=== PATIENT | female | born 1985 | race Caucasian/White ===

== ENCOUNTER 2017-07-20 00:26 | Emergency (ER) | payer BC ==
[2017-07-20] MEDS ORDERED: Azithromycin TAB* 250 MG PO ONE (03:16)
[2017-07-20] MEDS ORDERED: Albuterol HFA INHALER* 8 gm MDI INH ONE (03:17)
[2017-07-20 04:09] VITALS: BP 147/104
--- NOTE | 2017-07-20 06:56 | ED ---
Chang Bush Rebecca, scribed for Hoang Rosa MD on 07/20/17 at 0315 . Respiratory - HPI Summary HPI Summary: Pt is a 31 y/o F who presents to ED c/o productive cough. Sx began one week ago and is productive thick, yellow sputum. Reports that coughs "come in waves." Additionally c/o chills, dizziness, SOB, chills and ear pressure. SOB is characterized as dyspnea at exertion. Denies ear pain, vomiting and edema. 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 PMHx asthma - last year had PNA and was put on an nhaler. - History of Current Complaint Chief Complaint: EDUpperRespComplaint Stated Complaint: COUGH,DIZZINESS Time Seen by Provider: 07/20/17 03:08 Hx Obtained From: Patient Current Severity: Moderate Pain Intensity: 6 Character: Wheezing, Cough (Productive), Dyspnea on Exertion Sputum Color: Yellow Aggravating Factor(s): Nothing Alleviating Factor(s): Nothing Associated Signs and Symptoms: SOB, Chills - Allergy/Home Medications Allergies/Adverse Reactions: Allergies Allergy/AdvReac Type Severity Reaction Status Date / Time Aspirin [ASA] Allergy Severe Anaphylatic Verified 07/20/17 01:29 Shock Sulfa Antibiotics Allergy Intermediate Rash Verified 07/20/17 01:29 PMH/Surg Hx/FS Hx/Imm Hx Endocrine/Hematology History: Reports: Other Endocrine/Hematological Disorders - hypoglycemia Cardiovascular History: Reports: Hx Hypertension Respiratory History: Reports: Hx Asthma Infectious Disease History: No Infectious Disease History: Denies: Traveled Outside the [place] in Last 30 Days - Family History Known Family History: Positive: Hypertension, Diabetes Negative: Cardiac Disease - Social History Alcohol Use: None Substance Use Type: Reports: None Hx Tobacco Use: No Smoking Status (MU): Never Smoked Tobacco Review of Systems Positive: Chills Positive: Other - Ear pressure. Negative: Ear Ache Positive: Shortness Of Breath, Cough Negative: Vomiting Neurological: Other - Dizziness All Other Systems Reviewed And Are Negative: Yes Physical Exam - Summary Physical Exam Summary: The patient is well-nourished in no acute distress and in no acute pain. The skin is warm and dry and skin color reflects adequate perfusion. Good skin turgor. HEENT: The head is normocephalic and atraumatic. The pupils are equal and reactive. The conjunctivae are clear and without drainage. Nares are patent and without drainage. Mouth reveals moist mucous membranes and the throat is without erythema and exudate. The external ears are intact. The ear canals are patent and without drainage. The tympanic membranes are intact. Neck is supple with full range of motion and non-tender. There is no adenopathy. There is no neck vein distension. Respiratory: Chest is non-tender. Lungs are clear to auscultation and breath sounds are symmetrical and equal with no rales, rhonchi or wheezing. Cardiovascular: Hear is regular rate and rhythm. There is no murmur or rub auscultated. There is no peripheral edema and pulses are symmetrical and equal. Abdomen: The abdomen is obese, soft and non-tender. There are normal bowel sounds heard in all four quadrants and there is no organomegaly palpated. Musculoskeletal: There is no back pain noted. Extremities are non-tender with full range of motion. There is good capillary refill. There is no peripheral edema or calf tenderness elicited. Neurological: Patient is alert and oriented to person, place and time. The patient has symmetrical motor strength in all four extremities. Psychiatric: The patient has an appropriate affect and does not exhibit any anxiety or depression. Triage Information Reviewed: Yes Vital Signs On Initial Exam: Initial Vitals Temp Pulse Resp BP Pulse Ox 98.4 F 93 18 156/108 100 07/20/17 00:33 07/20/17 00:33 07/20/17 00:33 07/20/17 00:33 07/20/17 00:33 Vital Signs Reviewed: Yes Diagnostics - Vital Signs Vital Signs Temp Pulse Resp BP Pulse Ox 07/20/17 01:25 97.7 F 98 20 100 07/20/17 00:33 98.4 F 93 18 156/108 100 - Laboratory Lab Statement: Any lab studies that have been ordered have been reviewed, and results considered in the medical decision making process. Disposition - Course Assessment/Plan: Pt is a 31 y/o F who presents to ED c/o productive cough. Sx began one week ago and is productive thick, yellow sputum. Reports that coughs "come in waves." Additionally c/o chills, dizziness, SOB, chills and ear pressure. SOB is characterized as dyspnea at exertion. Denies ear pain, vomiting and edema. 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 PMHx asthma - last year had PNA and was put on an inhaler. In the ED course, pt was given a ventolin inhaler and Zithromax. Pt will be D/C to home with Dx of acute bronchitis with an Rx for Zithromax and a follow up with her PCP. She understands and agrees. Elevated BP noted and advised to f/u with PCP. - Differential Dx - Cardiopulmonary Differential Diagnoses - Cardiopulmonary: Asthma, Bronchitis, Lower Resp Infection - Diagnoses Provider Diagnoses: Acute bronchitis Discharge - Discharge Plan Condition: Stable Disposition: HOME Prescriptions: Azithromycin TAB* [Zithromax TAB (Z-TRISTAN) 250 mg #6 tabs] 2 tab PO .TODAY, THEN 1 DAILY #1 tristan Patient Education Materials: Acute Bronchitis (ED) Forms: *Work Release Referrals: Benito Curry MD [Primary Care Provider] - 3 Days The documentation as recorded by the Chang avendaño Rebecca accurately reflects the service I personally performed and the decisions made by me, Hoang Rosa MD.
== END 2017-07-20 04:05 | disposition home or self-care (01) ==
LOC: ED 00:26
DX: J20.9 Acute bronchitis, unspecified (principal); R06.2 Wheezing; R06.00 Dyspnea, unspecified; R05 Cough; R68.83 Chills (without fever)
CPT/HCPCS: 99283; A9270-GY

== ENCOUNTER 2018-06-02 21:47 | Emergency (ER) | payer BC, MEDICAID ==
[2018-06-02] MEDS ORDERED: Ketorolac INJ* 30 MG/ML 1 ML VIAL IV PUSH ONE (22:48)
[2018-06-02] MEDS ORDERED: Metoclopramide IV* 5 MG/ML 2 ML VIAL IV SLOW PU ONE (22:48)
[2018-06-02] MEDS ORDERED: diPHENhydraMINE IV* 50 MG/ML 1 ml VIAL (BENADRYL) IV ONE (22:49)
[2018-06-02] MEDS ORDERED: NS 0.9% 1000 ML* 1,000 ML IV ONE (22:49)
[2018-06-02 22:59] LABS: ABS Basophils 0.1 10^3/ul (0-0.2); ABS Eosinophils 0.1 10^3/ul (0-0.6); ABS Lymphocytes 2.1 10^3/ul (1.0-4.8); ABS Monocytes 0.5 10^3/ul (0-0.8); ABS Neutrophils 4.3 10^3/ul (1.5-7.7); ABS Nucleated RBC 0 10^3/ul; Eosinophil % 1.2 % (0-6); Hematocrit 39 % (35-47); Hemoglobin 12.9 g/dl (12.0-16.0); Lymphocyte % 29.3 % (25-47); Mean Corpuscular HGB Conc 33 g/dl (31-36); Mean Corpuscular Hemoglobin 28 pg (27-31); Mean Corpuscular Volume 84 fL (80-97); Mean Platelet Volume 9.4 um3 (7.4-10.4); Nucleated Red Blood Cells % 0.2; Platelet Count 210 10^3/ul (150-450); Red Blood Count 4.61 10^6/ul (4.00-5.40); Red Cell Distribution Width 14 % (10.5-15)
--- NOTE | 2018-06-02 23:00 | ED ---
Headache - HPI Summary HPI Summary: 32 female presents with headache for the past 3 days. States she has history of migraines. She states that the headache is in the same location but then it travels down the neck which is new. She also admits to photophobia. She admits to occasional blurry vision. Seh admits to nausea and vomiting. She denies any neck stiffness. She denies any fevers. He has had headaches this intense before. This is not the worst headache of her life. She states she had sumatriptan today and the headache improved. She was given Toradol yesterday in and her headache was better. She states though her headache is back to intensity was before she had the Toradol. She has a neurologist in [place]. She states she has has history of HTN but has not been on meds for a while. She denies any chest or shortness of breath. - History Of Current Complaint Chief Complaint: EDHeadache Stated Complaint: HEADACHE Time Seen by Provider: 06/02/18 22:41 Hx Last Menstrual Period: 07/25 - Allergies/Home Medications Allergies/Adverse Reactions: Allergies Allergy/AdvReac Type Severity Reaction Status Date / Time Sulfa (Sulfonamide Allergy Airway Verified 06/02/18 22:04 Antibiotics) Obstruction PMH/Surg Hx/FS Hx/Imm Hx Endocrine/Hematology History: Reports: Other Endocrine/Hematological Disorders - hypoglycemia Cardiovascular History: Reports: Hx Hypertension Respiratory History: Reports: Hx Asthma Infectious Disease History: No Infectious Disease History: Denies: Traveled Outside the [place] in Last 30 Days - Family History Known Family History: Positive: Hypertension, Diabetes Negative: Cardiac Disease - Social History Alcohol Use: None Substance Use Type: Reports: None Hx Tobacco Use: No Smoking Status (MU): Never Smoked Tobacco Review of Systems Negative: Fever Negative: Chest Pain Negative: Shortness Of Breath Positive: Vomiting Positive: Headache All Other Systems Reviewed And Are Negative: Yes Physical Exam Triage Information Reviewed: Yes Vital Signs On Initial Exam: Initial Vitals Temp Pulse Resp BP Pulse Ox 97.4 F 87 20 152/116 99 06/02/18 21:57 06/02/18 21:57 06/02/18 21:57 06/02/18 21:57 06/02/18 21:57 Vital Signs Reviewed: Yes Appearance: Positive: Well-Appearing Skin: Positive: Warm, Dry Head/Face: Positive: Normal Head/Face Inspection Eyes: Positive: Normal, EOMI, KEKE, Conjunctiva Clear ENT: Positive: Normal ENT inspection, Pharynx normal, TMs normal Respiratory/Lung Sounds: Positive: Clear to Auscultation, Breath Sounds Present Cardiovascular: Positive: Normal, RRR Abdomen Description: Positive: Nontender, Bruit Bowel Sounds: Positive: Present Musculoskeletal: Positive: Normal Neurological: Positive: Sensory/Motor Intact, Alert, Oriented to Person Place, Time, CN Intact II-III, Finger to Nose Psychiatric: Positive: Normal Diagnostics - Vital Signs Vital Signs Temp Pulse Resp BP Pulse Ox 06/02/18 22:41 86 156/119 96 06/02/18 21:57 97.4 F 87 20 152/116 99 - Laboratory Result Diagrams: 06/02/18 22:50 06/02/18 22:50 Lab Statement: Any lab studies that have been ordered have been reviewed, and results considered in the medical decision making process. Re-Evaluation - Re-Evaluation First Eval Re-Evaluation Time: 23:56 Change: Improved Comment: bp lower. pain better now 7 out of 10 Second Eval Re-Evaluation Time: 00:39 Change: Improved Comment: pain now a 3 out of 10 and ready to go home Headache Course/Dx - Course Course Of Treatment: 32 female presents with headache for the past 3 days. States she has history of migraines. She states that the headache is in the same location but then it travels down the neck which is new. She also admits to photophobia. She admits to occasional blurry vision. [facility] admits to nausea and vomiting. She denies any neck stiffness. She denies any fevers. He has had headaches this intense before. This is not the worst headache of her life. She states she had sumatriptan today and the headache improved. She was given Toradol yesterday in and her headache was better. She states though her headache is back to intensity was before she had the Toradol. She has a neurologist in [place]. She states she has has history of HTN but has not been on meds for a while. She denies any chest or shortness of breath. On exam has normal neuro exam. Labs within normal limits. BP is elevated. ct brain normal. bp came down with pain meds and gave dose of hydroclorthazidine which will start for home. patient given Reglan and Toradol and minimal improvement after morphine and Decadron patient's pain now 3 out of 10. Patient will go home and sleep. Told to follow-up with neurology. Told to follow-up with primary about blood pressure. Patient understands agrees with plan. - Diagnoses Differential Diagnosis/HQI/PQRI: Migraine, Sinus Headache, Tension Headache Provider Diagnoses: Headache, Hypertension Discharge - Sign-Out/Discharge Documenting (check all that apply): Patient Departure - Discharge Plan Condition: Good Disposition: HOME Prescriptions: Hydrochlorothiazide TAB* [Hydrodiuril TAB*] 25 mg PO DAILY #14 tab Patient Education Materials: Migraine Headache (ED), Hypertension (ED) Forms: *Work Release Referrals: Duglas JOHNSON,Hesham Pride [Primary Care Provider] - Additional Instructions: Take Tylenol or ibuprofen for pain every 6 hours take hydrochlorothiazide once a day Follow up with primary within a week about blood pressure Follow up with neurology Return to ED if develop any new or worsening symptoms - Billing Disposition and Condition Condition: GOOD Disposition: Home
[2018-06-02] MEDS ORDERED: Labetalol IV* 5 MG/ML 20 ML VIAL IV PUSH ONE (23:02)
[2018-06-02 23:16] LABS: EGFR Non-African American 79.6 (>60)
[2018-06-02] MEDS ORDERED: Dexamethasone IV* 4 MG/ML 1 ML (4 MG) IV SLOW PU ONE (23:54)
[2018-06-02] MEDS ORDERED: Hydrochlorothiazide TAB* 25 MG PO ONE (23:54)
[2018-06-02] MEDS ORDERED: Morphine VIAL* 4 MG/ML VIAL (1 ml vial) IV ONE (23:55)
[2018-06-03] MEDS ORDERED: Morphine VIAL* 10 MG/ML 1 ML VIAL ONE (00:02)
[2018-06-03] MEDS ORDERED: Morphine VIAL* 10 MG/ML 1 ML VIAL IV ONE (00:06)
[2018-06-03 01:22] VITALS: BP 135/83
--- NOTE | 2018-06-03 07:57 | RAD ---
HISTORY: headache COMPARISONS: None TECHNIQUE: Multiple contiguous axial CT scans were obtained of the head without intravenous contrast. FINDINGS: HEMORRHAGE/INFARCT: There is no hemorrhage or acute infarct. MASSES/SHIFT: There is no mass or shift. EXTRA-AXIAL SPACES: There are no extra-axial fluid collections. SULCI AND VENTRICLES: The sulci and ventricles are normal in size and position for the patient's stated age. CEREBRUM: There are no focal parenchymal abnormalities. BRAINSTEM: There are no focal parenchymal abnormalities. CEREBELLUM: There are no focal parenchymal abnormalities. VESSELS: The vessels are grossly normal. PARANASAL SINUSES: The paranasal sinuses are clear. ORBITS: The orbits are unremarkable. BONES AND SOFT TISSUE: No bone or soft tissue abnormalities are noted. OTHER: None IMPRESSION: NO ACUTE INTRACRANIAL PATHOLOGY. R0
== END 2018-06-03 01:23 | disposition home or self-care (01) ==
LOC: ED 21:47
DX: R51 Headache (principal); I10 Essential (primary) hypertension; R11.10 Vomiting, unspecified
CPT/HCPCS: 36415; 70450; 80053; 84702; 85025; 96374; 96375; 99284; A9270-GY; J1100; J1200; J1885; J2270; J2765

== ENCOUNTER 2018-06-14 22:49 | Emergency (ER) | payer MEDICAID ==
[2018-06-15] MEDS ORDERED: Ketorolac INJ* 30 MG/ML 1 ML VIAL IV PUSH ONE (01:24)
[2018-06-15] MEDS ORDERED: Metoclopramide IV* 5 MG/ML 2 ML VIAL IV SLOW PU ONE (01:24)
[2018-06-15] MEDS ORDERED: diPHENhydraMINE IV* 50 MG/ML 1 ml VIAL (BENADRYL) IV ONE (01:24)
[2018-06-15] MEDS ORDERED: NS 0.9% 1000 ML* 1,000 ML IV ONE (01:25)
[2018-06-15] MEDS ORDERED: Metoclopramide IV* 5 MG/ML 2 ML VIAL ONE (01:43)
[2018-06-15] MEDS ORDERED: diPHENhydraMINE IV* 50 MG/ML 1 ml VIAL (BENADRYL) ONE (01:43)
[2018-06-15] MEDS ORDERED: Ketorolac INJ* 30 MG/ML 1 ML VIAL ONE (01:44)
--- NOTE | 2018-06-15 02:57 | ED ---
Headache - HPI Summary HPI Summary: This is momoe Zane Romero documenting for attending Dr. Celso Evans MD. A 32 y/o female presents to ED c/o migraine headache reaching 9/10 in severity on the top of her head and frontal region. As per triage, "Pt with c/o migraine headache, right eye pain/vision changes. Pt with known hx of migraines". According to the patient, she has been experiencing migraine headache for the past 2 days. She noted that she doesn't often get headaches, but recently she has been. Additional symptoms include vomiting and photophobia. PMHx of high blood pressure and takes medication once per day in the morning. - History Of Current Complaint Chief Complaint: EDHeadache Stated Complaint: HEADACHE/RT EYE BLURRY Time Seen by Provider: 06/15/18 01:03 Hx Obtained From: Patient Hx Last Menstrual Period: 07/25 Onset/Duration: Sudden Onset, Started days ago, Still Present Initially Headache Was: Severe Currently Pain Is: Severe Timing: Constant Character: Migraine Location of Headache: Frontal, Other: - Top of head Aggravating Factor: Bright Lights Allevating Factors: Nothing Associated Signs And Symptoms: Vomiting, Visual Changes - Allergies/Home Medications Allergies/Adverse Reactions: Allergies Allergy/AdvReac Type Severity Reaction Status Date / Time Sulfa (Sulfonamide Allergy Airway Verified 06/14/18 22:58 Antibiotics) Obstruction PMH/Surg Hx/FS Hx/Imm Hx Endocrine/Hematology History: Reports: Other Endocrine/Hematological Disorders - hypoglycemia Cardiovascular History: Reports: Hx Hypertension Respiratory History: Reports: Hx Asthma Infectious Disease History: No Infectious Disease History: Denies: Traveled Outside the [place] in Last 30 Days - Family History Known Family History: Positive: Hypertension, Diabetes Negative: Cardiac Disease - Social History Alcohol Use: Rare Substance Use Type: Reports: None Hx Tobacco Use: No Smoking Status (MU): Never Smoked Tobacco Review of Systems Negative: Fever Positive: Photophobia, Blurred Vision Positive: Vomiting Positive: Headache All Other Systems Reviewed And Are Negative: Yes Physical Exam - Summary Physical Exam Summary: VITAL SIGNS: Reviewed. GENERAL: Patient is a well-developed and nourished female who is lying comfortable in the stretcher. Patient is not in any acute respiratory distress. HEAD AND FACE: No signs of trauma. No ecchymosis, hematomas or skull depressions. No sinus tenderness. EYES: PERRLA, EOMI x 2, No injected conjunctiva, no nystagmus. EARS: Hearing grossly intact. Ear canals and tympanic membranes are within normal limits. MOUTH: Oropharynx within normal limits. NECK: Supple, trachea is midline, no adenopathy, no JVD, no carotid bruit, no c- spine tenderness, neck with full ROM. CHEST: Symmetric, no tenderness at palpation LUNGS: Clear to auscultation bilaterally. No wheezing or crackles. CVS: Regular rate and rhythm, S1 and S2 present, no murmurs or gallops appreciated. ABDOMEN: Soft, non-tender. No signs of distention. No rebound no guarding, and no masses palpated. Bowel sounds are normal. EXTREMITIES: FROM in all major joints, no edema, no cyanosis or clubbing. NEURO: Alert and oriented x 3. No acute neurological deficits. Speech is normal and follows commands. SKIN: Dry and warm Triage Information Reviewed: Yes Vital Signs On Initial Exam: Initial Vitals Temp Pulse Resp BP Pulse Ox 97.8 F 76 16 174/111 100 06/14/18 22:55 06/14/18 22:55 06/14/18 22:55 06/14/18 22:55 06/14/18 22:55 Vital Signs Reviewed: Yes Diagnostics - Vital Signs Vital Signs Temp Pulse Resp BP Pulse Ox 06/14/18 22:55 97.8 F 76 16 174/111 100 - Laboratory Lab Statement: Any lab studies that have been ordered have been reviewed, and results considered in the medical decision making process. Re-Evaluation - Re-Evaluation First Eval Re-Evaluation Time: 03:50 Change: Improved Comment: PATIENT IS FEELING BETTER. Headache Course/Dx - Course Course Of Treatment: A 32 y/o female presents to ED c/o migraine headache reaching 9/10 in severity on the top of her head and frontal region. No laboratory scans were done. In the ED course, the patient recieved Reglan, Toradol and Benadryl. During reevaluation, the patient indicated that she was feeling much better. Patient will be discharged with a diagnosis of migraine headache. Patient is to follow up with PCP in 1-2 days. Patient is agreeable with this plan. - Diagnoses Provider Diagnoses: Migraine Discharge - Sign-Out/Discharge Documenting (check all that apply): Patient Departure - DISCHARGE - Discharge Plan Condition: Stable Disposition: HOME Patient Education Materials: Migraine Headache (ED) Referrals: Duglas JOHNSON,Hesham Pride [Primary Care Provider] - 2 Days Additional Instructions: RETURN TO THE ED FOR ANY NEW OR WORSENING SYMPTOMS.
[2018-06-15 04:31] VITALS: BP 140/80
== END 2018-06-15 04:29 | disposition home or self-care (01) ==
LOC: ED 22:49
DX: G43.909 Migraine, unspecified, not intractable, without status migrainosus (principal)
CPT/HCPCS: 96374; 99282; J1200; J1885; J2765